=== PATIENT | female | born 1945 | race Caucasian/White ===

== ENCOUNTER → 2020-04-28 | Outpatient (CLI) | payer MEDICARE, OTHER ==
[~2020-04-28] MED LIST: ASPIRIN81 MG PO; BACTRIM DS TAB1 EACH PO; CATAPRES 0.1MG0.1 MG PO; CLOPIDOGREL75 MG PO; FISH OIL CONC1000 MG PO; GABAPENTIN800 MG PO; HYDROCHLOROTH12.5 M1 PO; HYDROCHLOROTHIA25 MG PO; IBUPROFEN800 MG PO; LEVAQUIN500 MG PO; LIPITOR TAB 1010 MG PO; LIPITOR TAB 2020 MG PO; LOPRESSOR50 MG PO; LORTAB 7.5-3251 EACH PO; METOPROLOL TART50 MG PO; NEURONTIN600 MG PO; NEXIUM40 MG PO; NORCO 5-325 TA1 EACH PO; NORVASC 5 MG TAB5 MG PO; SEROQUEL50 MG PO; SILVADENE CREAM20 GM EXT; TRENTAL 400 MG400 MG PO; VALSARTAN80 MG PO; VANCOMYCIN750 MG/151 IV; ZYVOX600 MG PO
== END ==
LOC: WCC 10:30
PROC: 0KBT0ZZ Excision of Left Lower Leg Muscle, Open Approach (ICD-10-PCS; principal; 2020-04-28)
DX: I87.333 Chronic venous hypertension (idiopathic) with ulcer and inflammation of bilateral lower extremity (principal); L97.825 Non-pressure chronic ulcer of other part of left lower leg with muscle involvement without evidence of necrosis; I87.2 Venous insufficiency (chronic) (peripheral); L98.499 Non-pressure chronic ulcer of skin of other sites with unspecified severity; A49.02 Methicillin resistant Staphylococcus aureus infection, unspecified site; M06.9 Rheumatoid arthritis, unspecified; I73.9 Peripheral vascular disease, unspecified; R60.1 Generalized edema; F17.208 Nicotine dependence, unspecified, with other nicotine-induced disorders
CPT/HCPCS: 87070; 87077; 87186; 87205

== ENCOUNTER → 2020-05-12 | Outpatient (CLI) | payer MEDICARE, OTHER | LOC: WCC 09:48 | PROC: 0KBT0ZZ Excision of Left Lower Leg Muscle, Open Approach (ICD-10-PCS; principal; 2020-05-12) | PROC: 0KBS0ZZ Excision of Right Lower Leg Muscle, Open Approach (ICD-10-PCS; 2020-05-12) | DX: I87.333 Chronic venous hypertension (idiopathic) with ulcer and inflammation of bilateral lower extremity (principal); L97.315 Non-pressure chronic ulcer of right ankle with muscle involvement without evidence of necrosis; L97.325 Non-pressure chronic ulcer of left ankle with muscle involvement without evidence of necrosis; I87.2 Venous insufficiency (chronic) (peripheral); L98.499 Non-pressure chronic ulcer of skin of other sites with unspecified severity; M06.9 Rheumatoid arthritis, unspecified; I73.9 Peripheral vascular disease, unspecified; F17.208 Nicotine dependence, unspecified, with other nicotine-induced disorders; R60.1 Generalized edema; Z79.899 Other long term (current) drug therapy ==

== ENCOUNTER → 2020-05-19 | Outpatient (CLI) | payer MEDICARE, OTHER | LOC: WCC 09:59 | PROC: 0KBT0ZZ Excision of Left Lower Leg Muscle, Open Approach (ICD-10-PCS; principal; 2020-05-19) | PROC: 0KBS0ZZ Excision of Right Lower Leg Muscle, Open Approach (ICD-10-PCS; 2020-05-19) | DX: I87.333 Chronic venous hypertension (idiopathic) with ulcer and inflammation of bilateral lower extremity (principal); L97.315 Non-pressure chronic ulcer of right ankle with muscle involvement without evidence of necrosis; L97.325 Non-pressure chronic ulcer of left ankle with muscle involvement without evidence of necrosis; L98.499 Non-pressure chronic ulcer of skin of other sites with unspecified severity; I87.2 Venous insufficiency (chronic) (peripheral); M06.9 Rheumatoid arthritis, unspecified; I73.9 Peripheral vascular disease, unspecified; F17.208 Nicotine dependence, unspecified, with other nicotine-induced disorders; R60.1 Generalized edema ==

== ENCOUNTER → 2020-05-26 | Outpatient (CLI) | payer MEDICARE, OTHER | LOC: WCC 09:58 | PROC: 0JBP0ZZ Excision of Left Lower Leg Subcutaneous Tissue and Fascia, Open Approach (ICD-10-PCS; principal; 2020-05-26) | PROC: 0JBN0ZZ Excision of Right Lower Leg Subcutaneous Tissue and Fascia, Open Approach (ICD-10-PCS; 2020-05-26) | DX: L97.825 Non-pressure chronic ulcer of other part of left lower leg with muscle involvement without evidence of necrosis (principal); L97.815 Non-pressure chronic ulcer of other part of right lower leg with muscle involvement without evidence of necrosis ==

== ENCOUNTER → 2020-06-02 | Outpatient (CLI) | payer MEDICARE, OTHER | LOC: WCC 10:21 | PROC: 0KBT0ZZ Excision of Left Lower Leg Muscle, Open Approach (ICD-10-PCS; principal; 2020-06-02) | PROC: 0KBS0ZZ Excision of Right Lower Leg Muscle, Open Approach (ICD-10-PCS; 2020-06-02) | DX: I87.333 Chronic venous hypertension (idiopathic) with ulcer and inflammation of bilateral lower extremity (principal); L97.325 Non-pressure chronic ulcer of left ankle with muscle involvement without evidence of necrosis; L97.315 Non-pressure chronic ulcer of right ankle with muscle involvement without evidence of necrosis; M06.9 Rheumatoid arthritis, unspecified; I73.9 Peripheral vascular disease, unspecified; F17.208 Nicotine dependence, unspecified, with other nicotine-induced disorders; R60.1 Generalized edema; L98.499 Non-pressure chronic ulcer of skin of other sites with unspecified severity ==

== ENCOUNTER → 2020-06-23 | Outpatient (CLI) | payer MEDICARE, OTHER | LOC: WCC 10:02 | DX: I87.333 Chronic venous hypertension (idiopathic) with ulcer and inflammation of bilateral lower extremity (principal); I87.2 Venous insufficiency (chronic) (peripheral); L97.315 Non-pressure chronic ulcer of right ankle with muscle involvement without evidence of necrosis; L97.325 Non-pressure chronic ulcer of left ankle with muscle involvement without evidence of necrosis; R60.1 Generalized edema; L98.499 Non-pressure chronic ulcer of skin of other sites with unspecified severity; M06.9 Rheumatoid arthritis, unspecified; I73.9 Peripheral vascular disease, unspecified; F17.208 Nicotine dependence, unspecified, with other nicotine-induced disorders | CPT/HCPCS: Q4133 ==

== ENCOUNTER → 2020-07-07 | Outpatient (CLI) | payer MEDICARE, OTHER | LOC: WCC 09:55 | PROC: 0KBS0ZZ Excision of Right Lower Leg Muscle, Open Approach (ICD-10-PCS; principal; 2020-07-07) | PROC: 0KBT0ZZ Excision of Left Lower Leg Muscle, Open Approach (ICD-10-PCS; principal; 2020-07-07) | DX: I96 Gangrene, not elsewhere classified (principal); L97.823 Non-pressure chronic ulcer of other part of left lower leg with necrosis of muscle; L97.813 Non-pressure chronic ulcer of other part of right lower leg with necrosis of muscle; I10 Essential (primary) hypertension; H26.9 Unspecified cataract; D64.9 Anemia, unspecified; M06.9 Rheumatoid arthritis, unspecified; M19.90 Unspecified osteoarthritis, unspecified site; G62.9 Polyneuropathy, unspecified; Z79.891 Long term (current) use of opiate analgesic; Z79.2 Long term (current) use of antibiotics; Z79.899 Other long term (current) drug therapy ==

== ENCOUNTER → 2020-07-21 | Outpatient (CLI) | payer MEDICARE, OTHER | LOC: WCC 10:18 | PROC: 0KBW0ZZ Excision of Left Foot Muscle, Open Approach (ICD-10-PCS; principal; 2020-07-21) | PROC: 0HRMXJZ Replacement of Right Foot Skin with Synthetic Substitute, External Approach (ICD-10-PCS; 2020-07-21) | DX: I87.333 Chronic venous hypertension (idiopathic) with ulcer and inflammation of bilateral lower extremity (principal); L97.313 Non-pressure chronic ulcer of right ankle with necrosis of muscle; L97.323 Non-pressure chronic ulcer of left ankle with necrosis of muscle; I96 Gangrene, not elsewhere classified; I87.2 Venous insufficiency (chronic) (peripheral); M06.9 Rheumatoid arthritis, unspecified; H26.9 Unspecified cataract; D64.9 Anemia, unspecified; I10 Essential (primary) hypertension; M19.90 Unspecified osteoarthritis, unspecified site; G62.9 Polyneuropathy, unspecified; F17.208 Nicotine dependence, unspecified, with other nicotine-induced disorders; Z79.891 Long term (current) use of opiate analgesic; Z79.2 Long term (current) use of antibiotics; Z79.899 Other long term (current) drug therapy ==

== ENCOUNTER → 2020-07-28 | Outpatient (CLI) | payer MEDICARE, OTHER | LOC: WCC 10:13 | PROC: 0HR Skin and Breast, Replacement (ICD-10-PCS; principal; 2020-07-28) | PROC: 0KBT0ZZ Excision of Left Lower Leg Muscle, Open Approach (ICD-10-PCS; principal; 2020-07-28) | DX: I87.333 Chronic venous hypertension (idiopathic) with ulcer and inflammation of bilateral lower extremity (principal); I96 Gangrene, not elsewhere classified; L97.323 Non-pressure chronic ulcer of left ankle with necrosis of muscle; L97.313 Non-pressure chronic ulcer of right ankle with necrosis of muscle; L97.823 Non-pressure chronic ulcer of other part of left lower leg with necrosis of muscle; I87.2 Venous insufficiency (chronic) (peripheral); M06.9 Rheumatoid arthritis, unspecified; G62.9 Polyneuropathy, unspecified; F17.208 Nicotine dependence, unspecified, with other nicotine-induced disorders; Z79.891 Long term (current) use of opiate analgesic; Z79.899 Other long term (current) drug therapy; Z79.2 Long term (current) use of antibiotics | CPT/HCPCS: Q4133 ==

== ENCOUNTER → 2020-08-04 | Outpatient (CLI) | payer MEDICARE, OTHER | LOC: WCC 10:20 | PROC: 0KBT0ZZ Excision of Left Lower Leg Muscle, Open Approach (ICD-10-PCS; principal; 2020-08-04) | PROC: 0KBS0ZZ Excision of Right Lower Leg Muscle, Open Approach (ICD-10-PCS; 2020-08-04) | DX: I87.333 Chronic venous hypertension (idiopathic) with ulcer and inflammation of bilateral lower extremity (principal); L97.323 Non-pressure chronic ulcer of left ankle with necrosis of muscle; L97.313 Non-pressure chronic ulcer of right ankle with necrosis of muscle; I96 Gangrene, not elsewhere classified; I87.2 Venous insufficiency (chronic) (peripheral); F17.208 Nicotine dependence, unspecified, with other nicotine-induced disorders; I10 Essential (primary) hypertension; G62.9 Polyneuropathy, unspecified; M19.90 Unspecified osteoarthritis, unspecified site; Z79.891 Long term (current) use of opiate analgesic; Z79.2 Long term (current) use of antibiotics; Z79.899 Other long term (current) drug therapy ==

== ENCOUNTER → 2020-08-05 | Outpatient (CLI) | payer MEDICARE, OTHER | LOC: HEART 5 13:13 | DX: I87.333 Chronic venous hypertension (idiopathic) with ulcer and inflammation of bilateral lower extremity (principal) | CPT/HCPCS: 93970 ==

== ENCOUNTER → 2020-08-11 | Outpatient (CLI) | payer MEDICARE, OTHER | END | disposition home or self-care (01) | LOC: WCC 10:30 | DX: I87.333 Chronic venous hypertension (idiopathic) with ulcer and inflammation of bilateral lower extremity (principal); I87.2 Venous insufficiency (chronic) (peripheral); L97.925 Non-pressure chronic ulcer of unspecified part of left lower leg with muscle involvement without evidence of necrosis; L97.915 Non-pressure chronic ulcer of unspecified part of right lower leg with muscle involvement without evidence of necrosis; M06.9 Rheumatoid arthritis, unspecified; I73.9 Peripheral vascular disease, unspecified; F17.208 Nicotine dependence, unspecified, with other nicotine-induced disorders; R60.1 Generalized edema; Z79.899 Other long term (current) drug therapy ==

== ENCOUNTER → 2020-08-14 | Outpatient (CLI) | payer MEDICARE, OTHER | LOC: WCC 09:50 | PROC: 2W1RX6Z Compression of Left Lower Leg using Pressure Dressing (ICD-10-PCS; principal; 2020-08-14) | PROC: 2W1QX6Z Compression of Right Lower Leg using Pressure Dressing (ICD-10-PCS; 2020-08-14) | DX: I96 Gangrene, not elsewhere classified (principal); L97.829 Non-pressure chronic ulcer of other part of left lower leg with unspecified severity; L97.819 Non-pressure chronic ulcer of other part of right lower leg with unspecified severity; H26.9 Unspecified cataract; D64.9 Anemia, unspecified; I10 Essential (primary) hypertension; M06.9 Rheumatoid arthritis, unspecified; G62.9 Polyneuropathy, unspecified; M19.90 Unspecified osteoarthritis, unspecified site; Z79.891 Long term (current) use of opiate analgesic; Z79.899 Other long term (current) drug therapy ==

== ENCOUNTER → 2020-08-18 | Outpatient (CLI) | payer MEDICARE, OTHER | LOC: WCC 10:20 | PROC: 0JBN0ZZ Excision of Right Lower Leg Subcutaneous Tissue and Fascia, Open Approach (ICD-10-PCS; principal; 2020-08-18) | PROC: 0JBM0ZZ Excision of Left Upper Leg Subcutaneous Tissue and Fascia, Open Approach (ICD-10-PCS; 2020-08-18) | DX: I87.333 Chronic venous hypertension (idiopathic) with ulcer and inflammation of bilateral lower extremity (principal); L97.323 Non-pressure chronic ulcer of left ankle with necrosis of muscle; L97.313 Non-pressure chronic ulcer of right ankle with necrosis of muscle; I96 Gangrene, not elsewhere classified; I87.2 Venous insufficiency (chronic) (peripheral); M06.9 Rheumatoid arthritis, unspecified; F17.208 Nicotine dependence, unspecified, with other nicotine-induced disorders; H26.9 Unspecified cataract; D64.9 Anemia, unspecified; I10 Essential (primary) hypertension; M19.90 Unspecified osteoarthritis, unspecified site; G62.9 Polyneuropathy, unspecified; Z79.891 Long term (current) use of opiate analgesic; Z79.2 Long term (current) use of antibiotics; Z79.899 Other long term (current) drug therapy ==

== ENCOUNTER → 2020-08-25 | Outpatient (CLI) | payer MEDICARE, OTHER | LOC: WCC 10:21 | PROC: 0KBT0ZZ Excision of Left Lower Leg Muscle, Open Approach (ICD-10-PCS; principal; 2020-08-25) | PROC: 0KBS0ZZ Excision of Right Lower Leg Muscle, Open Approach (ICD-10-PCS; 2020-08-25) | DX: I87.333 Chronic venous hypertension (idiopathic) with ulcer and inflammation of bilateral lower extremity (principal); L97.823 Non-pressure chronic ulcer of other part of left lower leg with necrosis of muscle; L97.813 Non-pressure chronic ulcer of other part of right lower leg with necrosis of muscle; I96 Gangrene, not elsewhere classified; Z79.891 Long term (current) use of opiate analgesic; Z79.2 Long term (current) use of antibiotics; Z79.899 Other long term (current) drug therapy; I87.2 Venous insufficiency (chronic) (peripheral); L98.499 Non-pressure chronic ulcer of skin of other sites with unspecified severity; M06.9 Rheumatoid arthritis, unspecified; F17.208 Nicotine dependence, unspecified, with other nicotine-induced disorders; E11.36 Type 2 diabetes mellitus with diabetic cataract; H26.9 Unspecified cataract; D64.9 Anemia, unspecified; I10 Essential (primary) hypertension; M19.90 Unspecified osteoarthritis, unspecified site; E11.40 Type 2 diabetes mellitus with diabetic neuropathy, unspecified ==

== ENCOUNTER → 2020-09-01 | Outpatient (CLI) | payer MEDICARE, OTHER | LOC: WCC 10:07 | PROC: 2W1MX6Z Compression of Left Lower Extremity using Pressure Dressing (ICD-10-PCS; principal; 2020-09-01) | PROC: 2W1LX6Z Compression of Right Lower Extremity using Pressure Dressing (ICD-10-PCS; 2020-09-01) | DX: I96 Gangrene, not elsewhere classified (principal); L97.822 Non-pressure chronic ulcer of other part of left lower leg with fat layer exposed; L97.812 Non-pressure chronic ulcer of other part of right lower leg with fat layer exposed; I10 Essential (primary) hypertension; M06.9 Rheumatoid arthritis, unspecified; M19.90 Unspecified osteoarthritis, unspecified site; G62.9 Polyneuropathy, unspecified; H26.9 Unspecified cataract; D64.9 Anemia, unspecified; Z79.891 Long term (current) use of opiate analgesic; Z79.899 Other long term (current) drug therapy; Z79.2 Long term (current) use of antibiotics ==

== ENCOUNTER → 2020-09-08 | Outpatient (CLI) | payer MEDICARE, OTHER | LOC: WCC 10:13 | DX: I87.333 Chronic venous hypertension (idiopathic) with ulcer and inflammation of bilateral lower extremity (principal); L97.925 Non-pressure chronic ulcer of unspecified part of left lower leg with muscle involvement without evidence of necrosis; L97.915 Non-pressure chronic ulcer of unspecified part of right lower leg with muscle involvement without evidence of necrosis; F17.290 Nicotine dependence, other tobacco product, uncomplicated; M06.9 Rheumatoid arthritis, unspecified; I73.9 Peripheral vascular disease, unspecified ==

== ENCOUNTER → 2020-09-15 | Outpatient (CLI) | payer MEDICARE, OTHER | LOC: WCC 10:14 | DX: L97.922 Non-pressure chronic ulcer of unspecified part of left lower leg with fat layer exposed (principal); L97.912 Non-pressure chronic ulcer of unspecified part of right lower leg with fat layer exposed; F17.290 Nicotine dependence, other tobacco product, uncomplicated; M06.9 Rheumatoid arthritis, unspecified; I73.9 Peripheral vascular disease, unspecified; I10 Essential (primary) hypertension; D64.9 Anemia, unspecified; G62.9 Polyneuropathy, unspecified; M19.90 Unspecified osteoarthritis, unspecified site ==

== ENCOUNTER → 2020-09-22 | Outpatient (CLI) | payer MEDICARE, OTHER | LOC: WCC 10:01 | DX: I87.333 Chronic venous hypertension (idiopathic) with ulcer and inflammation of bilateral lower extremity (principal); I87.2 Venous insufficiency (chronic) (peripheral); L97.315 Non-pressure chronic ulcer of right ankle with muscle involvement without evidence of necrosis; L97.325 Non-pressure chronic ulcer of left ankle with muscle involvement without evidence of necrosis; M06.9 Rheumatoid arthritis, unspecified; F17.219 Nicotine dependence, cigarettes, with unspecified nicotine-induced disorders ==

== ENCOUNTER → 2020-09-29 | Outpatient (CLI) | payer MEDICARE, OTHER | LOC: WCC 10:28 | DX: I87.333 Chronic venous hypertension (idiopathic) with ulcer and inflammation of bilateral lower extremity (principal); L97.822 Non-pressure chronic ulcer of other part of left lower leg with fat layer exposed; L97.812 Non-pressure chronic ulcer of other part of right lower leg with fat layer exposed; F17.290 Nicotine dependence, other tobacco product, uncomplicated; M06.9 Rheumatoid arthritis, unspecified; I73.9 Peripheral vascular disease, unspecified ==

== ENCOUNTER → 2020-10-06 | Outpatient (CLI) | payer MEDICARE, OTHER | LOC: WCC 10:14 | DX: I87.333 Chronic venous hypertension (idiopathic) with ulcer and inflammation of bilateral lower extremity (principal); I87.2 Venous insufficiency (chronic) (peripheral); L97.315 Non-pressure chronic ulcer of right ankle with muscle involvement without evidence of necrosis; L97.325 Non-pressure chronic ulcer of left ankle with muscle involvement without evidence of necrosis; I73.9 Peripheral vascular disease, unspecified; M06.9 Rheumatoid arthritis, unspecified; F17.208 Nicotine dependence, unspecified, with other nicotine-induced disorders ==

== ENCOUNTER → 2020-10-13 | Outpatient (CLI) | payer MEDICARE, OTHER | LOC: WCC 10:16 | DX: I87.333 Chronic venous hypertension (idiopathic) with ulcer and inflammation of bilateral lower extremity (principal); I87.2 Venous insufficiency (chronic) (peripheral); L97.825 Non-pressure chronic ulcer of other part of left lower leg with muscle involvement without evidence of necrosis; L97.815 Non-pressure chronic ulcer of other part of right lower leg with muscle involvement without evidence of necrosis; M06.9 Rheumatoid arthritis, unspecified; I73.9 Peripheral vascular disease, unspecified; F17.208 Nicotine dependence, unspecified, with other nicotine-induced disorders; R60.1 Generalized edema; Z79.891 Long term (current) use of opiate analgesic; Z79.2 Long term (current) use of antibiotics; Z79.899 Other long term (current) drug therapy | CPT/HCPCS: 87070; 87077; 87186; 87205 ==

== ENCOUNTER → 2020-10-20 | Outpatient (CLI) | payer MEDICARE, OTHER | LOC: WCC 10:15 | DX: I87.333 Chronic venous hypertension (idiopathic) with ulcer and inflammation of bilateral lower extremity (principal); I87.2 Venous insufficiency (chronic) (peripheral); L97.822 Non-pressure chronic ulcer of other part of left lower leg with fat layer exposed; L97.812 Non-pressure chronic ulcer of other part of right lower leg with fat layer exposed; M06.9 Rheumatoid arthritis, unspecified; I73.9 Peripheral vascular disease, unspecified; F17.208 Nicotine dependence, unspecified, with other nicotine-induced disorders; R60.1 Generalized edema; Z79.891 Long term (current) use of opiate analgesic; Z79.2 Long term (current) use of antibiotics; Z79.899 Other long term (current) drug therapy ==

== ENCOUNTER → 2020-11-03 | Outpatient (CLI) | payer MEDICARE, OTHER | LOC: WCC 10:20 | DX: I87.333 Chronic venous hypertension (idiopathic) with ulcer and inflammation of bilateral lower extremity (principal); I87.2 Venous insufficiency (chronic) (peripheral); L97.822 Non-pressure chronic ulcer of other part of left lower leg with fat layer exposed; L97.812 Non-pressure chronic ulcer of other part of right lower leg with fat layer exposed; M06.9 Rheumatoid arthritis, unspecified; I73.9 Peripheral vascular disease, unspecified; F17.208 Nicotine dependence, unspecified, with other nicotine-induced disorders; Z79.891 Long term (current) use of opiate analgesic; Z79.2 Long term (current) use of antibiotics; Z79.899 Other long term (current) drug therapy ==

== ENCOUNTER → 2020-11-17 | Outpatient (CLI) | payer MEDICARE, OTHER | LOC: WCC 10:30 | DX: I87.333 Chronic venous hypertension (idiopathic) with ulcer and inflammation of bilateral lower extremity (principal); I87.2 Venous insufficiency (chronic) (peripheral); L97.822 Non-pressure chronic ulcer of other part of left lower leg with fat layer exposed; L97.812 Non-pressure chronic ulcer of other part of right lower leg with fat layer exposed; M06.9 Rheumatoid arthritis, unspecified; I73.9 Peripheral vascular disease, unspecified; F17.208 Nicotine dependence, unspecified, with other nicotine-induced disorders; R60.1 Generalized edema; Z79.891 Long term (current) use of opiate analgesic; Z79.2 Long term (current) use of antibiotics; Z79.899 Other long term (current) drug therapy ==

== ENCOUNTER → 2020-12-02 | Outpatient (CLI) | payer MEDICARE, OTHER | LOC: WCC 10:20 | DX: I87.333 Chronic venous hypertension (idiopathic) with ulcer and inflammation of bilateral lower extremity (principal); I87.2 Venous insufficiency (chronic) (peripheral); L97.822 Non-pressure chronic ulcer of other part of left lower leg with fat layer exposed; L97.812 Non-pressure chronic ulcer of other part of right lower leg with fat layer exposed; M06.9 Rheumatoid arthritis, unspecified; I73.9 Peripheral vascular disease, unspecified; F17.208 Nicotine dependence, unspecified, with other nicotine-induced disorders; R60.1 Generalized edema; Z79.891 Long term (current) use of opiate analgesic; Z79.899 Other long term (current) drug therapy ==

== ENCOUNTER → 2020-12-23 | Outpatient (CLI) | payer MEDICARE, OTHER | LOC: WCC 09:16 | DX: I87.333 Chronic venous hypertension (idiopathic) with ulcer and inflammation of bilateral lower extremity (principal); I87.2 Venous insufficiency (chronic) (peripheral); L97.822 Non-pressure chronic ulcer of other part of left lower leg with fat layer exposed; L97.812 Non-pressure chronic ulcer of other part of right lower leg with fat layer exposed; M06.9 Rheumatoid arthritis, unspecified; I73.9 Peripheral vascular disease, unspecified; F17.208 Nicotine dependence, unspecified, with other nicotine-induced disorders; R60.1 Generalized edema; Z79.891 Long term (current) use of opiate analgesic; Z79.899 Other long term (current) drug therapy ==

== ENCOUNTER → 2021-01-06 | Outpatient (CLI) | payer MEDICARE, OTHER | LOC: WCC 10:21 | PROC: 2W1RX6Z Compression of Left Lower Leg using Pressure Dressing (ICD-10-PCS; principal; 2021-01-06) | PROC: 0JBP0ZZ Excision of Left Lower Leg Subcutaneous Tissue and Fascia, Open Approach (ICD-10-PCS; principal; 2021-01-06) | PROC: 0JBN0ZZ Excision of Right Lower Leg Subcutaneous Tissue and Fascia, Open Approach (ICD-10-PCS; principal; 2021-01-06) | PROC: 2W1QX6Z Compression of Right Lower Leg using Pressure Dressing (ICD-10-PCS; principal; 2021-01-06) | DX: I87.333 Chronic venous hypertension (idiopathic) with ulcer and inflammation of bilateral lower extremity (principal); L97.322 Non-pressure chronic ulcer of left ankle with fat layer exposed; L97.312 Non-pressure chronic ulcer of right ankle with fat layer exposed; I87.2 Venous insufficiency (chronic) (peripheral); M06.9 Rheumatoid arthritis, unspecified; F17.208 Nicotine dependence, unspecified, with other nicotine-induced disorders; H26.9 Unspecified cataract; I10 Essential (primary) hypertension; M19.90 Unspecified osteoarthritis, unspecified site; G62.9 Polyneuropathy, unspecified; I73.9 Peripheral vascular disease, unspecified; Z79.891 Long term (current) use of opiate analgesic; Z79.899 Other long term (current) drug therapy; Z88.8 Allergy status to other drugs, medicaments and biological substances ==

== ENCOUNTER → 2021-01-09 | Outpatient (CLI) | payer MEDICARE, OTHER | LOC: WCC 09:39 | DX: L97.829 Non-pressure chronic ulcer of other part of left lower leg with unspecified severity (principal); L97.819 Non-pressure chronic ulcer of other part of right lower leg with unspecified severity; I10 Essential (primary) hypertension; D64.9 Anemia, unspecified; I73.9 Peripheral vascular disease, unspecified; M06.9 Rheumatoid arthritis, unspecified; G62.9 Polyneuropathy, unspecified; Z79.899 Other long term (current) drug therapy; Z79.891 Long term (current) use of opiate analgesic ==

== ENCOUNTER → 2021-01-13 | Outpatient (CLI) | payer MEDICARE, OTHER | LOC: WCC 11:03 | DX: I87.2 Venous insufficiency (chronic) (peripheral) (principal); L97.822 Non-pressure chronic ulcer of other part of left lower leg with fat layer exposed; L97.812 Non-pressure chronic ulcer of other part of right lower leg with fat layer exposed; I87.333 Chronic venous hypertension (idiopathic) with ulcer and inflammation of bilateral lower extremity; L98.499 Non-pressure chronic ulcer of skin of other sites with unspecified severity; L97.315 Non-pressure chronic ulcer of right ankle with muscle involvement without evidence of necrosis; L97.325 Non-pressure chronic ulcer of left ankle with muscle involvement without evidence of necrosis; M06.9 Rheumatoid arthritis, unspecified; I73.9 Peripheral vascular disease, unspecified; G62.9 Polyneuropathy, unspecified; I10 Essential (primary) hypertension; D64.9 Anemia, unspecified; F17.208 Nicotine dependence, unspecified, with other nicotine-induced disorders; Z79.899 Other long term (current) drug therapy ==

== ENCOUNTER → 2021-01-16 | Outpatient (CLI) | payer MEDICARE, OTHER | LOC: WCC 10:00 | DX: I89.0 Lymphedema, not elsewhere classified (principal); S81.802A Unspecified open wound, left lower leg, initial encounter; S81.801A Unspecified open wound, right lower leg, initial encounter ==

== ENCOUNTER → 2021-01-20 | Outpatient (CLI) | payer MEDICARE, OTHER | LOC: WCC 10:15 | DX: I87.333 Chronic venous hypertension (idiopathic) with ulcer and inflammation of bilateral lower extremity (principal); I87.2 Venous insufficiency (chronic) (peripheral); L97.822 Non-pressure chronic ulcer of other part of left lower leg with fat layer exposed; L97.815 Non-pressure chronic ulcer of other part of right lower leg with muscle involvement without evidence of necrosis; M06.9 Rheumatoid arthritis, unspecified; I73.9 Peripheral vascular disease, unspecified; F17.208 Nicotine dependence, unspecified, with other nicotine-induced disorders; R60.1 Generalized edema; Z79.891 Long term (current) use of opiate analgesic; Z79.2 Long term (current) use of antibiotics; Z79.899 Other long term (current) drug therapy ==

== ENCOUNTER → 2021-01-27 | Outpatient (CLI) | payer MEDICARE, OTHER | LOC: WCC 10:20 | DX: I87.333 Chronic venous hypertension (idiopathic) with ulcer and inflammation of bilateral lower extremity (principal); I87.2 Venous insufficiency (chronic) (peripheral); L97.825 Non-pressure chronic ulcer of other part of left lower leg with muscle involvement without evidence of necrosis; L97.815 Non-pressure chronic ulcer of other part of right lower leg with muscle involvement without evidence of necrosis; M06.9 Rheumatoid arthritis, unspecified; I73.9 Peripheral vascular disease, unspecified; F17.208 Nicotine dependence, unspecified, with other nicotine-induced disorders; R60.1 Generalized edema; Z79.2 Long term (current) use of antibiotics; Z79.899 Other long term (current) drug therapy | CPT/HCPCS: 87070; 87077; 87186; 87205 ==

== ENCOUNTER → 2021-02-04 | Outpatient (CLI) | payer MEDICARE, OTHER | LOC: WCC 11:00 | DX: I87.333 Chronic venous hypertension (idiopathic) with ulcer and inflammation of bilateral lower extremity (principal); I87.2 Venous insufficiency (chronic) (peripheral); L97.825 Non-pressure chronic ulcer of other part of left lower leg with muscle involvement without evidence of necrosis; L97.815 Non-pressure chronic ulcer of other part of right lower leg with muscle involvement without evidence of necrosis; M06.9 Rheumatoid arthritis, unspecified; I73.9 Peripheral vascular disease, unspecified; F17.208 Nicotine dependence, unspecified, with other nicotine-induced disorders; R60.1 Generalized edema; Z79.2 Long term (current) use of antibiotics; Z79.899 Other long term (current) drug therapy ==

== ENCOUNTER → 2021-02-18 | Outpatient (CLI) | payer MEDICARE, OTHER | LOC: WCC 11:30 | DX: I87.333 Chronic venous hypertension (idiopathic) with ulcer and inflammation of bilateral lower extremity (principal); I87.2 Venous insufficiency (chronic) (peripheral); L97.822 Non-pressure chronic ulcer of other part of left lower leg with fat layer exposed; L97.812 Non-pressure chronic ulcer of other part of right lower leg with fat layer exposed; M06.9 Rheumatoid arthritis, unspecified; I73.9 Peripheral vascular disease, unspecified; F17.298 Nicotine dependence, other tobacco product, with other nicotine-induced disorders; R60.1 Generalized edema; Z79.2 Long term (current) use of antibiotics; Z79.899 Other long term (current) drug therapy ==

== ENCOUNTER → 2021-03-03 | Outpatient (CLI) | payer MEDICARE, OTHER | LOC: WCC 09:50 | DX: I87.333 Chronic venous hypertension (idiopathic) with ulcer and inflammation of bilateral lower extremity (principal); L97.822 Non-pressure chronic ulcer of other part of left lower leg with fat layer exposed; L97.812 Non-pressure chronic ulcer of other part of right lower leg with fat layer exposed; L97.315 Non-pressure chronic ulcer of right ankle with muscle involvement without evidence of necrosis; L97.325 Non-pressure chronic ulcer of left ankle with muscle involvement without evidence of necrosis; I87.2 Venous insufficiency (chronic) (peripheral); I73.9 Peripheral vascular disease, unspecified; M06.9 Rheumatoid arthritis, unspecified; F17.208 Nicotine dependence, unspecified, with other nicotine-induced disorders; Z79.899 Other long term (current) drug therapy ==

== ENCOUNTER → 2021-03-17 | Outpatient (CLI) | payer MEDICARE, OTHER | LOC: WCC 08:04 | DX: I87.333 Chronic venous hypertension (idiopathic) with ulcer and inflammation of bilateral lower extremity (principal); L97.812 Non-pressure chronic ulcer of other part of right lower leg with fat layer exposed; L97.822 Non-pressure chronic ulcer of other part of left lower leg with fat layer exposed; L97.315 Non-pressure chronic ulcer of right ankle with muscle involvement without evidence of necrosis; L97.325 Non-pressure chronic ulcer of left ankle with muscle involvement without evidence of necrosis; I87.2 Venous insufficiency (chronic) (peripheral); I73.9 Peripheral vascular disease, unspecified; M06.9 Rheumatoid arthritis, unspecified; F17.208 Nicotine dependence, unspecified, with other nicotine-induced disorders ==

== ENCOUNTER → 2021-03-31 | Outpatient (CLI) | payer MEDICARE, OTHER | LOC: WCC 08:22 | DX: I87.333 Chronic venous hypertension (idiopathic) with ulcer and inflammation of bilateral lower extremity (principal); L97.812 Non-pressure chronic ulcer of other part of right lower leg with fat layer exposed; L97.822 Non-pressure chronic ulcer of other part of left lower leg with fat layer exposed; L97.315 Non-pressure chronic ulcer of right ankle with muscle involvement without evidence of necrosis; L97.325 Non-pressure chronic ulcer of left ankle with muscle involvement without evidence of necrosis; M06.9 Rheumatoid arthritis, unspecified; F17.208 Nicotine dependence, unspecified, with other nicotine-induced disorders; R60.1 Generalized edema | CPT/HCPCS: 87070; 87077; 87186; 87205 ==

== ENCOUNTER → 2021-04-14 | Outpatient (CLI) | payer MEDICARE, OTHER | END | disposition home or self-care (01) | LOC: WCC 07:35 | DX: I87.333 Chronic venous hypertension (idiopathic) with ulcer and inflammation of bilateral lower extremity (principal); L97.315 Non-pressure chronic ulcer of right ankle with muscle involvement without evidence of necrosis; L97.325 Non-pressure chronic ulcer of left ankle with muscle involvement without evidence of necrosis; I87.2 Venous insufficiency (chronic) (peripheral); M06.9 Rheumatoid arthritis, unspecified; I73.9 Peripheral vascular disease, unspecified; F17.208 Nicotine dependence, unspecified, with other nicotine-induced disorders; R60.1 Generalized edema; Z79.899 Other long term (current) drug therapy ==

== ENCOUNTER → 2021-04-28 | Outpatient (CLI) | payer MEDICARE, OTHER | END | disposition home or self-care (01) | LOC: WCC 08:13 | DX: I87.333 Chronic venous hypertension (idiopathic) with ulcer and inflammation of bilateral lower extremity (principal); L97.315 Non-pressure chronic ulcer of right ankle with muscle involvement without evidence of necrosis; L97.325 Non-pressure chronic ulcer of left ankle with muscle involvement without evidence of necrosis; I87.2 Venous insufficiency (chronic) (peripheral); I73.9 Peripheral vascular disease, unspecified; M06.9 Rheumatoid arthritis, unspecified; F17.208 Nicotine dependence, unspecified, with other nicotine-induced disorders; R60.1 Generalized edema; Z79.899 Other long term (current) drug therapy ==

== ENCOUNTER → 2021-05-12 | Outpatient (CLI) | payer MEDICARE, OTHER | END | disposition home or self-care (01) | LOC: WCC 07:47 | PROC: 0JBR0ZZ Excision of Left Foot Subcutaneous Tissue and Fascia, Open Approach (ICD-10-PCS; principal; 2021-05-12) | PROC: 0JBQ0ZZ Excision of Right Foot Subcutaneous Tissue and Fascia, Open Approach (ICD-10-PCS; 2021-05-12) | DX: I87.333 Chronic venous hypertension (idiopathic) with ulcer and inflammation of bilateral lower extremity (principal); L97.315 Non-pressure chronic ulcer of right ankle with muscle involvement without evidence of necrosis; L97.325 Non-pressure chronic ulcer of left ankle with muscle involvement without evidence of necrosis; I87.2 Venous insufficiency (chronic) (peripheral); M06.9 Rheumatoid arthritis, unspecified; I73.9 Peripheral vascular disease, unspecified; F17.298 Nicotine dependence, other tobacco product, with other nicotine-induced disorders; Z79.891 Long term (current) use of opiate analgesic; Z79.2 Long term (current) use of antibiotics; Z79.899 Other long term (current) drug therapy ==

== ENCOUNTER → 2021-05-26 | Outpatient (CLI) | payer MEDICARE, OTHER | LOC: WCC 07:38 | DX: L97.825 Non-pressure chronic ulcer of other part of left lower leg with muscle involvement without evidence of necrosis (principal); L97.815 Non-pressure chronic ulcer of other part of right lower leg with muscle involvement without evidence of necrosis; I87.2 Venous insufficiency (chronic) (peripheral); M06.9 Rheumatoid arthritis, unspecified; I73.9 Peripheral vascular disease, unspecified; F17.208 Nicotine dependence, unspecified, with other nicotine-induced disorders; R60.1 Generalized edema; I10 Essential (primary) hypertension; F17.290 Nicotine dependence, other tobacco product, uncomplicated ==

== ENCOUNTER → 2021-06-09 | Outpatient (CLI) | payer MEDICARE, OTHER | LOC: WCC 07:56 | DX: I87.333 Chronic venous hypertension (idiopathic) with ulcer and inflammation of bilateral lower extremity (principal); I87.2 Venous insufficiency (chronic) (peripheral); L97.825 Non-pressure chronic ulcer of other part of left lower leg with muscle involvement without evidence of necrosis; L97.815 Non-pressure chronic ulcer of other part of right lower leg with muscle involvement without evidence of necrosis; M06.9 Rheumatoid arthritis, unspecified; I73.9 Peripheral vascular disease, unspecified; F17.208 Nicotine dependence, unspecified, with other nicotine-induced disorders; Z79.899 Other long term (current) drug therapy ==

== ENCOUNTER → 2021-06-30 | Outpatient (CLI) | payer MEDICARE, OTHER | LOC: WCC 07:45 | DX: I87.333 Chronic venous hypertension (idiopathic) with ulcer and inflammation of bilateral lower extremity (principal); L97.825 Non-pressure chronic ulcer of other part of left lower leg with muscle involvement without evidence of necrosis; L97.815 Non-pressure chronic ulcer of other part of right lower leg with muscle involvement without evidence of necrosis; I87.2 Venous insufficiency (chronic) (peripheral); M06.9 Rheumatoid arthritis, unspecified; I73.9 Peripheral vascular disease, unspecified; F17.208 Nicotine dependence, unspecified, with other nicotine-induced disorders; R60.1 Generalized edema ==

== ENCOUNTER → 2021-07-14 | Outpatient (CLI) | payer MEDICARE, OTHER | LOC: WCC 07:50 | DX: I87.333 Chronic venous hypertension (idiopathic) with ulcer and inflammation of bilateral lower extremity (principal); I87.2 Venous insufficiency (chronic) (peripheral); L97.822 Non-pressure chronic ulcer of other part of left lower leg with fat layer exposed; L97.812 Non-pressure chronic ulcer of other part of right lower leg with fat layer exposed; M06.9 Rheumatoid arthritis, unspecified; I73.9 Peripheral vascular disease, unspecified; F17.208 Nicotine dependence, unspecified, with other nicotine-induced disorders; Z79.899 Other long term (current) drug therapy ==

== ENCOUNTER → 2021-07-28 | Outpatient (CLI) | payer MEDICARE, OTHER | LOC: WCC 08:23 | DX: I87.333 Chronic venous hypertension (idiopathic) with ulcer and inflammation of bilateral lower extremity (principal); I87.2 Venous insufficiency (chronic) (peripheral); L97.822 Non-pressure chronic ulcer of other part of left lower leg with fat layer exposed; L97.812 Non-pressure chronic ulcer of other part of right lower leg with fat layer exposed; M06.9 Rheumatoid arthritis, unspecified; I73.9 Peripheral vascular disease, unspecified; F17.208 Nicotine dependence, unspecified, with other nicotine-induced disorders; Z79.899 Other long term (current) drug therapy ==

== ENCOUNTER → 2021-08-11 | Outpatient (CLI) | payer MEDICARE, OTHER | LOC: WCC 07:34 | DX: L97.822 Non-pressure chronic ulcer of other part of left lower leg with fat layer exposed (principal); L97.812 Non-pressure chronic ulcer of other part of right lower leg with fat layer exposed; F17.290 Nicotine dependence, other tobacco product, uncomplicated; I87.2 Venous insufficiency (chronic) (peripheral); M06.9 Rheumatoid arthritis, unspecified; I73.9 Peripheral vascular disease, unspecified; R60.1 Generalized edema; I10 Essential (primary) hypertension ==

== ENCOUNTER → 2021-08-25 | Outpatient (CLI) | payer MEDICARE, OTHER | LOC: WCC 07:31 | DX: I87.333 Chronic venous hypertension (idiopathic) with ulcer and inflammation of bilateral lower extremity (principal); F17.208 Nicotine dependence, unspecified, with other nicotine-induced disorders; L97.812 Non-pressure chronic ulcer of other part of right lower leg with fat layer exposed; L97.315 Non-pressure chronic ulcer of right ankle with muscle involvement without evidence of necrosis; L97.325 Non-pressure chronic ulcer of left ankle with muscle involvement without evidence of necrosis; L97.822 Non-pressure chronic ulcer of other part of left lower leg with fat layer exposed; M06.9 Rheumatoid arthritis, unspecified; R60.1 Generalized edema ==

== ENCOUNTER → 2021-09-22 | Outpatient (CLI) | payer MEDICARE, OTHER | END | disposition home or self-care (01) | LOC: WCC 07:45 | DX: I87.333 Chronic venous hypertension (idiopathic) with ulcer and inflammation of bilateral lower extremity (principal); L97.822 Non-pressure chronic ulcer of other part of left lower leg with fat layer exposed; L97.812 Non-pressure chronic ulcer of other part of right lower leg with fat layer exposed; I73.9 Peripheral vascular disease, unspecified; M06.9 Rheumatoid arthritis, unspecified; R60.1 Generalized edema; F17.208 Nicotine dependence, unspecified, with other nicotine-induced disorders; Z79.899 Other long term (current) drug therapy ==

== ENCOUNTER → 2021-10-06 | Outpatient (CLI) | payer MEDICARE, OTHER | LOC: WCC 07:01 | DX: I87.333 Chronic venous hypertension (idiopathic) with ulcer and inflammation of bilateral lower extremity (principal); I87.2 Venous insufficiency (chronic) (peripheral); L97.822 Non-pressure chronic ulcer of other part of left lower leg with fat layer exposed; L97.812 Non-pressure chronic ulcer of other part of right lower leg with fat layer exposed; M06.9 Rheumatoid arthritis, unspecified; I73.9 Peripheral vascular disease, unspecified; F17.208 Nicotine dependence, unspecified, with other nicotine-induced disorders; Z79.899 Other long term (current) drug therapy ==

== ENCOUNTER → 2021-10-20 | Outpatient (CLI) | payer MEDICARE, OTHER | LOC: WCC 07:20 | DX: I87.333 Chronic venous hypertension (idiopathic) with ulcer and inflammation of bilateral lower extremity (principal); L97.825 Non-pressure chronic ulcer of other part of left lower leg with muscle involvement without evidence of necrosis; L97.815 Non-pressure chronic ulcer of other part of right lower leg with muscle involvement without evidence of necrosis; I87.2 Venous insufficiency (chronic) (peripheral); M06.9 Rheumatoid arthritis, unspecified; I73.9 Peripheral vascular disease, unspecified; F17.208 Nicotine dependence, unspecified, with other nicotine-induced disorders; R60.1 Generalized edema ==

== ENCOUNTER → 2021-11-17 | Outpatient (CLI) | payer MEDICARE, OTHER | LOC: WCC 07:32 | DX: I87.333 Chronic venous hypertension (idiopathic) with ulcer and inflammation of bilateral lower extremity (principal); L97.822 Non-pressure chronic ulcer of other part of left lower leg with fat layer exposed; L97.812 Non-pressure chronic ulcer of other part of right lower leg with fat layer exposed; I87.2 Venous insufficiency (chronic) (peripheral); M06.9 Rheumatoid arthritis, unspecified; I73.9 Peripheral vascular disease, unspecified; F17.208 Nicotine dependence, unspecified, with other nicotine-induced disorders; R60.1 Generalized edema; I10 Essential (primary) hypertension ==

== ENCOUNTER → 2021-12-10 | Outpatient (CLI) | payer MEDICARE, OTHER | END | disposition home or self-care (01) | LOC: WCC 07:28 | PROC: 0JBP0ZZ Excision of Left Lower Leg Subcutaneous Tissue and Fascia, Open Approach (ICD-10-PCS; principal; 2021-12-10) | DX: I87.313 Chronic venous hypertension (idiopathic) with ulcer of bilateral lower extremity (principal); L97.825 Non-pressure chronic ulcer of other part of left lower leg with muscle involvement without evidence of necrosis; L97.815 Non-pressure chronic ulcer of other part of right lower leg with muscle involvement without evidence of necrosis; M06.9 Rheumatoid arthritis, unspecified ==

== ENCOUNTER → 2022-01-07 | Outpatient (CLI) | payer MEDICARE, OTHER | END | disposition home or self-care (01) | LOC: WCC 07:17 | DX: I87.2 Venous insufficiency (chronic) (peripheral) (principal); L97.825 Non-pressure chronic ulcer of other part of left lower leg with muscle involvement without evidence of necrosis; L97.815 Non-pressure chronic ulcer of other part of right lower leg with muscle involvement without evidence of necrosis; M06.9 Rheumatoid arthritis, unspecified; I73.9 Peripheral vascular disease, unspecified; R60.1 Generalized edema; F17.208 Nicotine dependence, unspecified, with other nicotine-induced disorders ==

== ENCOUNTER → 2022-01-21 | Outpatient (CLI) | payer MEDICARE, OTHER | END | disposition home or self-care (01) | LOC: WCC 07:30 | PROC: 0JBP0ZZ Excision of Left Lower Leg Subcutaneous Tissue and Fascia, Open Approach (ICD-10-PCS; principal; 2022-01-21) | PROC: 0JBN0ZZ Excision of Right Lower Leg Subcutaneous Tissue and Fascia, Open Approach (ICD-10-PCS; 2022-01-21) | DX: I87.333 Chronic venous hypertension (idiopathic) with ulcer and inflammation of bilateral lower extremity (principal); L97.822 Non-pressure chronic ulcer of other part of left lower leg with fat layer exposed; L97.812 Non-pressure chronic ulcer of other part of right lower leg with fat layer exposed; M06.9 Rheumatoid arthritis, unspecified; I73.9 Peripheral vascular disease, unspecified; I10 Essential (primary) hypertension; D64.9 Anemia, unspecified; G62.9 Polyneuropathy, unspecified; M19.90 Unspecified osteoarthritis, unspecified site; F17.208 Nicotine dependence, unspecified, with other nicotine-induced disorders; Z79.899 Other long term (current) drug therapy ==

== ENCOUNTER → 2022-02-04 | Outpatient (CLI) | payer MEDICARE, OTHER | LOC: WCC 07:13 | DX: I87.333 Chronic venous hypertension (idiopathic) with ulcer and inflammation of bilateral lower extremity (principal); I87.2 Venous insufficiency (chronic) (peripheral); M06.9 Rheumatoid arthritis, unspecified; I10 Essential (primary) hypertension ==